=== PATIENT | female | born 1960 | race Two or more races ===

== ENCOUNTER 2020-10-09 08:23 | Inpatient (IN) | payer OTHER ==
[~2020-10-09] VITALS: Ht 152.4 cm; Wt 77.1 kg
[~2020-10-09 08:23] MED LIST: ACID REDUCER 1150 MG PO; AMILORIDE HCL-H1 TAB PO; CIPRO500 MG PO; FLAGYL500MG PO; LISINOPRIL10 MG PO; METFORMIN HCL500 M1 PO; SKELAXIN400 MG PO; TORADOL10 MG PO
[2020-10-09] MEDS ORDERED: INVOKAMET 150-1 EACH (08:42)
[2020-10-09] MEDS ORDERED: ATACAND4 MG (08:44)
[2020-10-09] MEDS ORDERED: CRESTOR10 MG (08:45)
[2020-10-10] MEDS ORDERED: ABATINEX680 MG (08:40)
[2020-10-10] MEDS ORDERED: CANDESARTAN-HC1 EAC1 (08:41)
[2020-10-10] MEDS ORDERED: CARVEDILOL12.5 M1 (08:41)
[2020-10-13] MEDS ORDERED: INTESTINEX680 M1 PO (10:21)
[2020-10-13] MEDS ORDERED: BUTALB-ACETAMI1 EAC2 PO (10:22)
[2020-10-14] MEDS ORDERED: CLOTRIMAZOLE10 MG MM (08:43)
[2020-10-14] MEDS ORDERED: FLAGYL500MG PO (08:46)
[2020-10-14] MEDS ORDERED: CIPRO500 MG PO (08:46)
[2020-10-14] MEDS ORDERED: PEPCID AC20 MG PO (08:46)
[2020-10-14] MEDS ORDERED: GABAPENTIN100 M2 PO (08:49)
== END 2020-10-14 13:17 | disposition home or self-care (01) | DRG 392 ==
LOC: ER 08:23 → SURH 14:08 → SEC-K 14:08 → SURH 17:22
PROVIDERS: ADMIT Surgery; ATTEND Surgery
PROC: BW21ZZZ Computerized Tomography (CT Scan) of Abdomen and Pelvis (ICD-10-PCS; principal; 2020-10-09)
DX: K57.20 Diverticulitis of large intestine with perforation and abscess without bleeding (principal); Z20.822 Contact with and (suspected) exposure to COVID-19; E11.9 Type 2 diabetes mellitus without complications; I10 Essential (primary) hypertension; Z79.4 Long term (current) use of insulin

== ENCOUNTER 2020-12-20 06:56 | Day surgery (SDC) | payer OTHER ==
[~2020-12-20 06:56] MED LIST changes: +ABATINEX680 MG; +ATACAND4 MG; +BUTALB-ACETAMI1 EAC2 PO; +CANDESARTAN-HC1 EAC1; +CARVEDILOL12.5 M1; +CLOTRIMAZOLE10 MG MM; +CRESTOR10 MG; +GABAPENTIN100 M2 PO; +INTESTINEX680 M1 PO; +INVOKAMET 150-1 EACH; +PEPCID AC20 MG PO
== END 2020-12-20 13:20 | disposition home or self-care (01) ==
LOC: AMB-ENDOS 06:56
PROVIDERS: ATTEND Surgery
DX: D12.2 Benign neoplasm of ascending colon (principal); D12.3 Benign neoplasm of transverse colon; Z20.822 Contact with and (suspected) exposure to COVID-19; Z12.11 Encounter for screening for malignant neoplasm of colon

== ENCOUNTER 2021-01-16 10:15 | Inpatient (IN) | payer OTHER ==
[~2021-01-16] VITALS: Ht 152.4 cm; Wt 77.1 kg
[2021-01-19] MEDS ORDERED: GABAPENTIN300 M2 (08:13)
[2021-01-19] MEDS ORDERED: CLOTRIMAZOLE-BE15 G1 (08:16)
[2021-01-21] MEDS ORDERED: ULTRACET PO (08:51)
[2021-01-21] MEDS ORDERED: INTESTINEX680 M1 PO (08:51)
[2021-01-21] MEDS ORDERED: BACTRIM DS TAB1 EACH PO (08:52)
[2021-01-21] MEDS ORDERED: TESSALON PERLE100 M1 PO (08:53)
== END 2021-01-21 10:39 | disposition home or self-care (01) | DRG 331 ==
LOC: SURG 01-18 05:27 → O/R 01-18 05:27 → SURH 01-18 07:00 → SURG 01-18 13:33
PROVIDERS: ADMIT Surgery; ATTEND Surgery
PROC: 0DTP4ZZ Resection of Rectum, Percutaneous Endoscopic Approach (ICD-10-PCS; 2021-01-18)
PROC: 0DBN4ZZ Excision of Sigmoid Colon, Percutaneous Endoscopic Approach (ICD-10-PCS; principal; 2021-01-18 07:00)
DX: K57.20 Diverticulitis of large intestine with perforation and abscess without bleeding (principal); K63.5 Polyp of colon; R19.7 Diarrhea, unspecified; I11.9 Hypertensive heart disease without heart failure; I49.9 Cardiac arrhythmia, unspecified; E78.5 Hyperlipidemia, unspecified; E11.9 Type 2 diabetes mellitus without complications

== ENCOUNTER 2025-04-06 14:00 | Emergency (ER) | payer OTHER ==
[~2025-04-06] VITALS: Ht 152.4 cm; Wt 77.1 kg
[~2025-04-06 14:00] MED LIST changes: +BACTRIM DS TAB1 EACH PO; +CLOTRIMAZOLE-BE15 G1; +GABAPENTIN300 M2; +TESSALON PERLE100 M1 PO; +ULTRACET PO
[2025-04-06] MEDS ORDERED: PANTOPRAZOLE SO40 MG PO (15:00)
[2025-04-06] MEDS ORDERED: LOSARTAN-HCTZ1 EAC2 PO (15:00)
[2025-04-06] MEDS ORDERED: EZETIMIBE10 MG PO (15:01)
[2025-04-06] MEDS ORDERED: NORVASC2.5 M1 (15:01)
[2025-04-06] MEDS ORDERED: CHILDREN'S ASPI81 MG PO (15:02)
[2025-04-06 15:31] LABS: BASO % 0.5 % (0.1-1.2); EOS # 0.41 (0.04-0.54); EOS % 7.4 % (0.7-7.0); LYMPH # 2.13 (1.18-3.74); LYMPH % 38.2 % (19.3-53.1); MEAN PLATELET VOLUME 9.30 fl (9.4-12.4); MONO # 0.32 (0.24-0.82); MONO % 5.7 % (4.7-12.5); NEUT # 2.67 (1.56-6.13); NEUT % 48.0 % (34.0-71.1); RED CELL DISTRIBUTION WIDTH 12.5 % (11.6-14.4)
[2025-04-06 16:10] LABS: COVID-19 AG NEGATIVE (NEGATIVE)
[2025-04-06] MEDS ORDERED: ORPHENADRINE CITRATE 30 MG/ML AMPUL IM ONE (17:00)
[2025-04-06] MEDS ORDERED: KETOROLAC TROMETHAMINE 30 MG VIAL IM ONE (17:00)
[2025-04-06] MEDS ORDERED: DICLOFENAC SODI75 MG PO (17:12)
[2025-04-06] MEDS ORDERED: NORFLEX100MG PO (17:12)
== END 2025-04-06 17:37 | disposition home or self-care (01) ==
LOC: ER 14:00
PROVIDERS: Preventive Medicine Public Health & General Preventive Medicine
DX: M62.838 Other muscle spasm (principal); E11.9 Type 2 diabetes mellitus without complications; Z79.84 Long term (current) use of oral hypoglycemic drugs; I10 Essential (primary) hypertension; Z20.822 Contact with and (suspected) exposure to COVID-19; Z88.0 Allergy status to penicillin

== ENCOUNTER 2025-07-01 11:35 | Emergency (ER) | payer OTHER ==
[~2025-07-01] VITALS: Ht 157.5 cm; Wt 74.8 kg
[~2025-07-01 11:35] MED LIST changes: +CHILDREN'S ASPI81 MG PO; +DICLOFENAC SODI75 MG PO; +EZETIMIBE10 MG PO; +LOSARTAN-HCTZ1 EAC2 PO; +NORFLEX100MG PO; +NORVASC2.5 M1; +PANTOPRAZOLE SO40 MG PO
[2025-07-01] MEDS ORDERED: 0.9 % SODIUM CHLORIDE 1,000 ML IV SCH (13:15)
[2025-07-01 14:22] LABS: BASO % 0.8 % (0.1-1.2); EOS # 0.60 (0.04-0.54); EOS % 9.4 % (0.7-7.0); LYMPH # 2.26 (1.18-3.74); LYMPH % 35.4 % (19.3-53.1); MEAN PLATELET VOLUME 9.30 fl (9.4-12.4); MONO # 0.39 (0.24-0.82); MONO % 6.1 % (4.7-12.5); NEUT # 3.08 (1.56-6.13); NEUT % 48.1 % (34.0-71.1); RED CELL DISTRIBUTION WIDTH 12.5 % (11.6-14.4)
[2025-07-01 14:25] LABS: URINE APPEARANCE Clear; URINE BILIRRUBIN Negative (NEGATIVE); URINE BLOOD Negative; URINE COLOR Yellow; URINE GLUCOSE Negative (NEGATIVE); URINE KETONE Trace (NEGATIVE); URINE LEUKOCYTE Negative; URINE NITRATE Negative; URINE PROTEIN Negative (NEGATIVE); URINE UROBILINOGEN 0.2 E.U./dl
[2025-07-01 14:29] LABS: URINE BACTERIA 1016.3 uL (0.0-1933); URINE CAST 1.75 uL (0.0-1.40); URINE EPITHELIAL CELLS 9.5 uL (0.0-38.8); URINE RBC 6.1 uL (0.0-20.8); URINE WBC 4.3 uL (0.0-23.2)
[2025-07-01 14:53] LABS: ALT/SGPT 67 U/L (12-78); AST/SGOT 32 U/L (15-37); BILIRUBIN TOTAL 0.56 mg/dL (0.3-1.2); BUN CREA RATIO 23 (7.0-25.0); CREATININE SERUM 1.05 mg/dL (0.55-1.02); GFR 52.93; GLOBULINA 3.8 G/DL (2.4-3.5)
[2025-07-01 14:54] LABS: GLUCOSE FASTING 273 mg/dL (65-100); OSMOLALITY SERUM 293 MOSM/KG (275-295)
[2025-07-01] MEDS ORDERED: CIPRO500 MG PO (15:35)
[2025-07-01] MEDS ORDERED: TAMS0.4C PO (15:35)
[2025-07-01] MEDS ORDERED: TRAMADOL HCL50 MG PO (15:35)
== END 2025-07-01 18:32 | disposition home or self-care (01) ==
LOC: ER 11:36
PROVIDERS: Physician Assistant Medical
DX: N20.0 Calculus of kidney (principal); N17.9 Acute kidney failure, unspecified; E86.0 Dehydration; N39.0 Urinary tract infection, site not specified; R10.20 Pelvic and perineal pain unspecified side; M54.59 Other low back pain; I10 Essential (primary) hypertension; E11.9 Type 2 diabetes mellitus without complications; Z79.84 Long term (current) use of oral hypoglycemic drugs; Z88.0 Allergy status to penicillin